=== PATIENT | male | born 1955 | race Caucasian/White ===

== ENCOUNTER 2017-12-18 05:53 | Day surgery (SDC) | payer OTHER ==
[2017-12-18 07:17] LABS: ADD MAN DIFF? NO
[2017-12-18 07:19] LABS: BASOPHIL # 0.1 10^3/ul (0.0-0.1); BASOPHILS % 0.8 % (0.0-2.0); EOSINOPHILS # 0.4 10^3/ul (0.0-0.5); EOSINOPHILS % 4.6 % (0.0-7.0); HEMATOCRIT 40.7 % (42.0-52.0); HEMOGLOBIN 13.3 g/dl (14.0-18.0); LYMPHOCYTES # 2.2 10^3/ul (0.8-2.9); LYMPHOCYTES % 24.6 % (15.0-51.0); MEAN CORPUSCULAR HEMOGLOBIN 29.6 pg (29.0-33.0); MEAN CORPUSCULAR HGB CONC 32.7 g/dl (32.0-37.0); MEAN CORPUSCULAR VOLUME 90.6 fl (82.0-101.0); MEAN PLATELET VOLUME 10.7 fl (7.4-10.4); MONOCYTE # 0.8 10^3/ul (0.3-0.9); MONOCYTES % 8.4 % (0.0-11.0); NEUTROPHIL # 5.5 10^3/ul (1.6-7.5); NEUTROPHILS % 61.2 % (39.0-77.0); PLATELET COUNT 199 10^3/UL (140-415); RED BLOOD COUNT 4.49 10^6/ul (4.70-6.10); RED CELL DISTRIBUTION WIDTH 12.6 % (11.5-14.5)
[2017-12-18] MEDS ORDERED: IODIXANOL LOCM 100 ML BTL (07:30)
[2017-12-18] MEDS ORDERED: LIDOCAINE 2% (MDV) 20 ML INJ (07:30)
[2017-12-18] MEDS ORDERED: HEPARIN 1000 UNITS/ML 10 ML INJ (07:30)
[2017-12-18] MEDS ORDERED: MIDAZOLAM 1 MG/ML 2 ML INJ (07:31)
[2017-12-18] MEDS ORDERED: FENTAnyl 50 MCG/ML VIAL (07:31)
[2017-12-18] MEDS ORDERED: VERAPAMIL 5 MG INJ (07:31)
[2017-12-18 07:39] LABS: INR 0.93; PROTIME 12.5 Sec (11.9-14.9)
[2017-12-18 07:46] LABS: ANION GAP 9 (5-13); BLOOD UREA NITROGEN 14 mg/dl (7-20); CALCIUM 9.3 mg/dl (8.4-10.2); CARBON DIOXIDE 30 mmol/L (21-31); CHLORIDE 101 mmol/L (97-110); CREATININE 0.95 mg/dl (0.61-1.24); GLUCOSE 170 mg/dl (70-220); POTASSIUM 4.4 mmol/L (3.5-5.1); SODIUM 140 mmol/L (135-144)
[2017-12-18] MEDS ORDERED: hydrALAzine 20 MG INJ (08:12)
[2017-12-18] MEDS ORDERED: SOD CHLORIDE 0.9% 1,000 ML IV (08:14)
== END 2017-12-18 11:45 | disposition home or self-care (01) ==
LOC: SDS 05:53
DX: I42.9 Cardiomyopathy, unspecified (principal); I25.5 Ischemic cardiomyopathy; I10 Essential (primary) hypertension; Z87.891 Personal history of nicotine dependence; R94.39 Abnormal result of other cardiovascular function study
CPT/HCPCS: 80048; 82962; 85025; 85610; 93005; 93454